=== PATIENT | female | born 1965 | race Caucasian/White ===

== ENCOUNTER 2019-04-08 13:39 | Outpatient (CLI) | payer OTHER ==
--- NOTE | 2019-04-08 15:41 | MRI ---
MRI RIGHT SHOULDER 04/08/19 PROVIDED CLINICAL HISTORY: Right shoulder pain. FINDINGS: There is full thickness, full width, retracted tearing of the supraspinatus tendon with retraction to about the level of the glenohumeral joint. There is full thickness, essentially full width tearing o f the infraspinatus tendon with retraction to about the level of the acromioclavicular joint. The sub scapularis and teres minor tendons appear intact. Intact fibers of the long head biceps tendon are no t identified. There is a large glenohumeral joint effusion that freely communicates with the subacromial subdeltoid bursa. Abnormal signal in the region of the superior labrum compatible with tear. No focal articular cartilage defect is apparent. Generalized articular cartilage thinning involving the inferior aspect s of the humeral head. Acromioclavicular joint osteoarthrosis is demonstrated. There is mild fatty infiltration of both supr aspinatus and infraspinatus muscles without significant muscle volume loss. IMPRESSION: 1. Massive rotator cuff tear. 2. Intact fibers of the long head biceps tendon are not identified, compatible with disruption. 3. Large glenohumeral joint effusion. 4. Humeral articular chondrosis. 5. Acromioclavicular joint osteoarthrosis. POS: [facility]
== END 2019-04-08 13:40 | disposition home or self-care (01) ==
LOC: BICMRI 13:39
PROVIDERS: ATTEND Family Medicine
DX: M25.511 Pain in right shoulder (principal); M75.101 Unspecified rotator cuff tear or rupture of right shoulder, not specified as traumatic; M25.411 Effusion, right shoulder; M19.011 Primary osteoarthritis, right shoulder; M24.111 Other articular cartilage disorders, right shoulder

== ENCOUNTER 2019-10-12 12:38 | Outpatient (CLI) | payer OTHER ==
[2019-10-12 17:21] LABS: Hemoglobin 14.8 g/dL (12.0-16.0); Mean Corpuscular HGB CONC 34.6 g/dL (32.0-36.0); Mean Corpuscular Hemoglobin 32.7 pg (27.0-31.0); Mean Corpuscular Volume 94.5 fL (78.0-98.0); Mean Platelet Volume 7.8 fL (7.4-10.4); Platelet Count 312 thou/uL (130-400); RBC Distribution Width 12.1 % (11.5-14.5); Red Blood Cell (RBC) Count 4.52 mill/uL (4.20-5.40); White Blood Cell (WBC) Count 8.2 thou/uL (4.8-10.8)
[2019-10-12 17:45] LABS: Anion Gap 13 mmol/L (10-20); BUN (Urea Nitrogen) 11 mg/dL (9.8-20.1); Calc. Creatinine Clearance 0 mL/min (70-130); Carbon Dioxide 24 mmol/L (22-29); Chloride 104 mmol/L (98-107); Estimated GFR-MDRD 88; Glucose 85 mg/dL (70-105); Sodium 137 mmol/L (136-145)
--- NOTE | 2019-10-13 15:03 | EKG ---
Test Reason : Blood Pressure : / mmHG Vent. Rate : 068 BPM Atrial Rate : 068 BPM P-R Int : 164 ms QRS Dur : 090 ms QT Int : 396 ms P-R-T Axes : 049 089 023 degrees QTc Int : 421 ms Normal sinus rhythm Cannot rule out Anterior infarct , age undetermined Abnormal ECG Confirmed by UZMA FONTANEZ ([id number]) on 10/13/2019 3:02:53 PM Referred By: JANETH Confirmed By:UZMA FONTANEZ
== END 2019-10-12 12:39 | disposition home or self-care (01) ==
LOC: LABBT 12:38
PROVIDERS: ATTEND Orthopaedic Surgery
DX: Z01.818 Encounter for other preprocedural examination (principal); M75.101 Unspecified rotator cuff tear or rupture of right shoulder, not specified as traumatic; M19.011 Primary osteoarthritis, right shoulder
CPT/HCPCS: 80048; 85027; 93005; 93010

== ENCOUNTER 2019-10-15 10:48 | Day surgery (SDC) | payer OTHER ==
[2019-10-12 15:35] VITALS: BMI 35.2
[~2019-10-15 10:48] MED LIST: Glycopyrrolate 0.2 MG/ML 5 ML SYRINGE ONE; Ketorolac Tromethamine 30 MG/ML VIAL ONE; Lidocaine 1% PF 5 ML VIAL ONE; Ondansetron PF 4 MG/2 ML Vial ONE; PROPOFOL 200 MG/20 ML VIAL ONE; Rocuronium Bromide 10 MG/ML (10ML VIAL) ONE; Ropivacaine 0.2% HCl/PF (40 MG/20 ML VIAL) ONE; Ropivacaine 0.5% HCl/PF (150 MG/30 ML VIAL) ONE
[2019-10-15] MEDS ORDERED: Midazolam HCl 2 mg/2 ml Vial ONE (12:09)
[2019-10-15] MEDS ORDERED: Fentanyl 100 MCG/2 ML VIAL ONE ×5 (12:09→15:50)
[2019-10-15] MEDS ORDERED: Lidocaine 1% w/Epinephrine 1:100K 20 ML VIAL ONE (12:24)
[2019-10-15] MEDS ORDERED: Bupivacaine 0.25% HCL 30 ML VIAL ONE (12:24)
[2019-10-15] MEDS ORDERED: HYDROcodone/Acetaminophen 10/325 mg Tablet PO PRN ×2 (12:25)
[2019-10-15] MEDS ORDERED: Ondansetron PF 4 MG/2 ML Vial IVP PRN (12:25)
[2019-10-15] MEDS ORDERED: Promethazine HCl 25 MG/ML VIAL IM PRN (12:25)
[2019-10-15] MEDS ORDERED: Zolpidem Tartrate 5 MG TAB PO PRN (12:25)
[2019-10-15] MEDS ORDERED: Ropivacaine 0.2% 550 ML 550 ML NERVE BLCK SCH (12:25)
[2019-10-15] MEDS ORDERED: Acetaminophen 325 MG TAB PO PRN (12:25)
[2019-10-15] MEDS ORDERED: traMADol HCl 50 MG TAB PO PRN ×2 (12:25)
[2019-10-15] MEDS ORDERED: Fentanyl 100 MCG/2 ML VIAL IV PRN (12:26)
[2019-10-15] MEDS ORDERED: Promethazine HCl 25 MG/ML VIAL ONE (16:01)
[2019-10-15] MEDS ORDERED: Meperidine HCl/PF 25 MG/ML VIAL ONE (16:15)
[2019-10-15] MEDS ORDERED: Ondansetron ODT 4 MG TAB ONE (18:27)
[2019-10-15] MEDS ORDERED: KETOROLAC EYE TOP SCH ×2 (19:15→23:59)
--- NOTE | 2019-10-16 10:30 | OP ---
DATE OF PROCEDURE: PREOPERATIVE DIAGNOSIS: Massive rotator cuff tear of the right shoulder with acromioclavicular arthritis. POSTOPERATIVE DIAGNOSIS: Massive rotator cuff tear of the right shoulder with acromioclavicular arthritis. PROCEDURE PERFORMED: 1. Arthroscopy of the right shoulder with excision of distal clavicle. 2. Subacromial decompression. 3. Open rotator cuff repair using Dermagraft patch. ANESTHESIA: General. DESCRIPTION OF PROCEDURE: The patient had a supraclavicular block prior to surgery. She was given preoperative IV antibiotics. She was taken to the operating room and placed in supine position. Satisfactory general anesthesia was performed. The patient was then placed in the left lateral decubitus position. All bony prominences were well padded. The patient was placed in 15 pounds of traction and the right shoulder and right arm were sterilely prepped and draped in the usual fashion. The shoulder was scoped through the posterior portal, through an anterior portal and a lateral portal. The patient had some arthritic changes in the shoulder joint. The biceps tendon had already torn and was out of the shoulder joint. The superior aspect of the humeral head was completely uncovered. There was no rotator cuff present there. She had a very large rotator cuff tear, which had retracted medial to the glenoid and it was not mobile. A longitudinal incision was made in the lateral aspect of the shoulder, approximately 2 inches in length. The superior fibers of the deltoid were bluntly dissected, made sure that a good subacromial decompression was performed. The subacromial bursa was removed. The top of the humeral head was visualized. The anterior and posterior portion of the rotator cuff was found, again the part directly over the humeral head had retracted far medial to the glenoid and it was not mobile, and therefore a #2 FiberWire was passed through the anterior and anterior posterior portion of the rotator cuff, also the posterior and posterior medial aspect of the rotator cuff and then sutures were also passed through the superior aspect of the labrum. The thick Dermagraft from [employer] was then sutured initially in the most medial aspect to the labrum and then around anteriorly and medially to the rest of the rotator cuff. The lateral portion of the Dermagraft was then repaired down to the area at the greater tuberosity using 2 medial row and 2 lateral row PushLock anchors, anchor is 4.75 width anchors. This provided excellent fixation to the lateral aspect of the humeral head and greater tuberosity. This provided full coverage over the humeral head. The wound was irrigated and then 0 Vicryl was used for the fascia of the deltoid muscle, 2-0 Vicryl for the fat and subcutaneous tissue, and skin incisions were closed with 3-0 Rapide. The patient was taken out of traction. Sterile dressing was applied. She was awakened, extubated, and transferred to recovery room in stable condition. ESTIMATED BLOOD LOSS: 200 mL. COMPLICATIONS: None. DISCHARGE MEDICATION: Lapaz 10/325 one every 6 hours as needed for pain, #40. The patient is placed in a shoulder immobilizer, which she will need to stay in for a minimum of 1 month. Job ID: [id number]
== END 2019-10-15 19:45 | disposition home or self-care (01) ==
LOC: SDC 10:48
PROVIDERS: ATTEND Orthopaedic Surgery
PROC: 0PB94ZZ Excision of Right Clavicle, Percutaneous Endoscopic Approach (ICD-10-PCS; principal; 2019-10-15)
PROC: 0RNJ4ZZ Release Right Shoulder Joint, Percutaneous Endoscopic Approach (ICD-10-PCS; principal; 2019-10-15)
PROC: 0LQ10ZZ Repair Right Shoulder Tendon, Open Approach (ICD-10-PCS; principal; 2019-10-15)
DX: M75.101 Unspecified rotator cuff tear or rupture of right shoulder, not specified as traumatic (principal); M19.011 Primary osteoarthritis, right shoulder
CPT/HCPCS: A4306; C1713; J0690; J1885; J2001; J2175; J2250; J2405; J2550; J2704; J2795; J3010; Q0162; S0020

== ENCOUNTER 2020-07-08 07:43 | Outpatient (CLI) | payer OTHER ==
--- NOTE | 2020-07-08 09:45 | MRI ---
MRI OF THE RIGHT SHOULDER WITHOUT CONTRAST: INDICATION: History of right shoulder pain and palpable abnormality with loss of range of motion. COMPARISON: Prior MRI of the right shoulder dated 04/08/2019. FINDINGS: There is postsurgical change of a rotator cuff repair, biceps tenodesis, and SLAP repair. There is a lso postsurgical change of a distal clavicle excision acromioplasty. Surface marker was placed along the lateral aspect of the shoulder joint. FINDINGS: There is a recurrent full-thickness tear involving the mid to posterior supraspinatus measuring 2.4 x 1.1 cm. The supraspinatus and infraspinatus tendon are moderately atretic. There is worsening tend inosis, now moderate in severity, involving the subscapularis. There is worsening muscular atrophy o f the supraspinatus and infraspinatus now severe. There is stable moderate atrophy of the teres raul r. There is susceptibility artifact from a suture anchor within the superior glenoid likely related to prior SLAP repair. There is persistent linear high T2 signal involving the superior glenoid labru m suspicious for a recurrent SLAP tear. There is a suspected large paralabral cyst seen along the po sterior superior margin of the glenoid measuring 1.9 x 2.5 cm. Degenerative hypertrophic change jose ins near the AC joint. There is worsening moderate chondrosis of the glenohumeral joint. No enlarge d lymph node is evident. IMPRESSION: 1. Findings most consistent with recurrent mid to posterior supraspinatus full-thickness tear with w orsening severe supraspinatus and infraspinatus muscular atrophy. 2. Recurrent superior labrum anterior to posterior involving the anterior superior, superior, and po sterior superior glenoid labrum with associated paralabral cyst. 3. Worsening moderate glenohumeral chondrosis. 4. Interval biceps tenodesis with mildly atretic biceps tendon partially visualized within the mid t o distal biceps bicipital groove. 5. Worsening moderate tendinosis of the subscapularis without evidence of full-thickness tear. POS: [facility]
== END 2020-07-08 07:44 | disposition home or self-care (01) ==
LOC: BICMRI 07:43
PROVIDERS: ATTEND Orthopaedic Surgery
DX: M25.511 Pain in right shoulder (principal); S43.431A Superior glenoid labrum lesion of right shoulder, initial encounter; M94.211 Chondromalacia, right shoulder; M67.813 Other specified disorders of tendon, right shoulder

== ENCOUNTER 2022-07-11 11:09 | Outpatient (CLI) | payer OTHER | END 2022-07-11 11:10 | disposition home or self-care (01) | LOC: MRI 11:09 | PROVIDERS: ATTEND Orthopaedic Surgery | DX: M25.511 Pain in right shoulder (principal); M75.121 Complete rotator cuff tear or rupture of right shoulder, not specified as traumatic; S43.431A Superior glenoid labrum lesion of right shoulder, initial encounter; Z98.890 Other specified postprocedural states ==

== ENCOUNTER 2023-09-22 12:40 | Emergency (ER) | payer BC, OTHER ==
[2023-09-22] MEDS ORDERED: Ondansetron PF 4 MG/2 ML Vial ONE (13:11)
[2023-09-22] MEDS ORDERED: Morphine 4 MG/ML VIAL ONE (13:11)
[2023-09-22 13:16] LABS: #Basophils 0.2 thou/uL (0.0-0.2); #Eosinphils 0.2 thou/uL (0.0-0.7); #Monocytes 0.6 thou/uL (0.11-0.59); %Basophils 1.4 % (0.0-1.0); %Eosinophils 2.3 % (0.0-10.0); %Lymphocytes 23.3 % (21.0-51.0); %Monocytes 5.4 % (0.0-10.0); %Neutrophils 67.3 % (42.0-75.0); Hemoglobin 14.7 g/dL (12.0-16.0); Mean Corpuscular Hemoglobin 31.8 pg (27.0-31.0); Mean Corpuscular Volume 90.9 fl (78.0-98.0); Mean Platelet Volume 9.5 fL (7.4-10.4); Platelet Count 371 10x3/uL (130-400); RBC Distribution Width 12.8 % (11.5-14.5); Red Blood Cell (RBC) Count 4.62 mill/uL (4.20-5.40); White Blood Cell (WBC) Count 10.4 10x3/uL (4.8-10.8)
[2023-09-22] MEDS ORDERED: Iopamidol-370 76% 500 ML MDV (1 ML CHARGE) ONE (13:23)
[2023-09-22 13:37] LABS: Anion Gap 13 mmol/L (10-20); BUN (Urea Nitrogen) 7 mg/dL (9.8-20.1); Calc. Creatinine Clearance 0 mL/min (70-130); Carbon Dioxide 23 mmol/L (22-29); Chloride 104 mmol/L (98-107); Potassium 4.3 mmol/L (3.5-5.1); Sodium 136 mmol/L (136-145)
[2023-09-22 13:38] LABS: ALT (SGPT) 16 U/L (8-55); AST (SGOT) 20 U/L (5-34); Albumin 4.2 g/dL (3.5-5.0); Alkaline Phosphatase 79 U/L (40-110); Bilirubin, Total 0.3 mg/dL (0.2-1.2); Calcium 9.1 mg/dL (7.8-10.44); Estimated GFR 99; Globulin 2.7 g/dL (2.4-3.5); Glucose 107 mg/dL (70-105); Protein, Total 6.9 g/dL (6.0-8.3)
== END 2023-09-22 15:38 | disposition home or self-care (01) ==
LOC: ERS 12:40
DX: K43.9 Ventral hernia without obstruction or gangrene (principal); F17.210 Nicotine dependence, cigarettes, uncomplicated
CPT/HCPCS: 36415; 74177; 80053; 85025; 96374; J2270; J2405; Q9967

== ENCOUNTER 2023-10-11 09:12 | Outpatient (CLI) | payer BC ==
[2023-10-11 10:50] LABS: #Basophils 0.1 10x3/uL (0.0-0.2); #Eosinphils 0.2 10x3/uL (0.0-0.5); #Monocytes 0.4 10x3/uL (0.0-1.1); #Neutrophils 5.2 10x3/uL (1.5-8.4); %Basophils 1.8 % (0.0-2.0); %Eosinophils 2.6 % (0.0-6.0); %Lymphocytes 24.6 % (18.0-47.0); %Monocytes 5.4 % (0.0-10.0); %Neutrophils 65.3 % (40.0-75.0); Hematocrit 45.2 % (34.9-44.5); Hemoglobin 15.5 g/dL (12.0-15.5); Mean Corpuscular HGB CONC 34.3 g/dL (32.0-36.0); Mean Corpuscular Hemoglobin 30.8 pg (27.0-33.0); Mean Corpuscular Volume 89.9 fl (81.6-98.3); Mean Platelet Volume 10.3 fl (7.4-10.4); Platelet Count 372 10x3/uL (150-450); RBC Distribution Width 12.6 % (11.5-14.5); Red Blood Cell (RBC) Count 5.03 10x6/uL (3.90-5.03)
[2023-10-11 11:34] LABS: Anion Gap 14 mmol/L (10-20); BUN (Urea Nitrogen) 10 mg/dL (9.8-20.1); Calc. Creatinine Clearance 0 mL/min (70-130); Carbon Dioxide 23 mmol/L (22-29); Chloride 106 mmol/L (98-107); Estimated GFR 99; Glucose 102 mg/dL (70-105); Potassium 4.7 mmol/L (3.5-5.1); Sodium 138 mmol/L (136-145)
== END 2023-10-11 09:13 | disposition home or self-care (01) ==
LOC: LABBT 09:12
PROVIDERS: ATTEND Surgery
DX: Z01.818 Encounter for other preprocedural examination (principal); K43.2 Incisional hernia without obstruction or gangrene
CPT/HCPCS: 80048; 85025; 93005; 93010

== ENCOUNTER 2023-10-18 10:02 | Day surgery (SDC) | payer BC ==
[2023-10-11 09:57] VITALS: BMI 35.2
[2023-10-18] MEDS ORDERED: Ondansetron PF 4 MG/2 ML Vial ONE (12:26)
[2023-10-18] MEDS ORDERED: PROPOFOL 20 ML ONE ×2 (12:26→13:19)
[2023-10-18] MEDS ORDERED: Dexamethasone 20 MG/5 ML VIAL ONE (12:26)
[2023-10-18] MEDS ORDERED: Lidocaine 1% PF 5 ML VIAL ONE (12:26)
[2023-10-18] MEDS ORDERED: fentaNYL PF 100 MCG/2 ML SYRINGE ONE (12:26)
[2023-10-18] MEDS ORDERED: Rocuronium Bromide 10 MG/ML (10ML VIAL) ONE (12:26)
[2023-10-18] MEDS ORDERED: Bupivacaine 0.25% HCL 30 ML VIAL ONE (12:27)
[2023-10-18] MEDS ORDERED: EPINEPHrine 1 MG/ML VIAL ONE (12:27)
[2023-10-18] MEDS ORDERED: Midazolam HCl 2 mg/2 ml Vial ONE (12:32)
[2023-10-18] MEDS ORDERED: Sodium Chloride 0.9% 100 ML ONE (12:37)
[2023-10-18] MEDS ORDERED: CEFAZOLIN 2 GM VIAL ONE (12:37)
[2023-10-18] MEDS ORDERED: Ketamine In 0.9 % NaCl 50 MG/5 ML SYRINGE ONE (12:51)
[2023-10-18] MEDS ORDERED: ePHEDrine Sulfate 50 MG/10 ML VIAL ONE (12:58)
[2023-10-18] MEDS ORDERED: Dexmedetomidine 200 MCG/2 ML VIAL ONE (13:10)
[2023-10-18] MEDS ORDERED: hydrALAZINE 20 MG/ML VIAL ONE (13:53)
[2023-10-18] MEDS ORDERED: SUGAMMADEX SODIUM 200 MG/2 ML VIAL ONE ×2 (13:55→14:01)
[2023-10-18] MEDS ORDERED: Lidocaine 2% PF 5 ML VIAL ONE (14:02)
[2023-10-18] MEDS ORDERED: fentaNYL 50 mcg/mL 1 mL Vial ONE ×2 (14:07→14:59)
[2023-10-18] MEDS ORDERED: HYDROmorphone 2 MG/ML VIAL ONE (14:17)
[2023-10-18] MEDS ORDERED: Promethazine HCl 25 MG/ML VIAL ONE (15:52)
[2023-10-18] MEDS ORDERED: Morphine 2 MG/ML VIAL ONE (15:57)
[2023-10-18] MEDS ORDERED: HYDROcodone/Acetaminophen 5/325 mg Tablet ONE (15:57)
== END 2023-10-18 16:57 | disposition home or self-care (01) ==
LOC: SDC 10:02
PROVIDERS: ATTEND Surgery
PROC: 0WUF4JZ Supplement Abdominal Wall with Synthetic Substitute, Percutaneous Endoscopic Approach (ICD-10-PCS; principal; 2023-10-18)
DX: K43.2 Incisional hernia without obstruction or gangrene (principal); M19.90 Unspecified osteoarthritis, unspecified site; J45.909 Unspecified asthma, uncomplicated; F17.210 Nicotine dependence, cigarettes, uncomplicated; Z79.899 Other long term (current) drug therapy
CPT/HCPCS: A4314; C1781; J0171; J0360; J0665; J1100; J1170; J2001; J2250; J2272; J2405; J2550; J2704; J3010; J3490

== ENCOUNTER 2024-08-24 12:49 | Outpatient (CLI) | payer BC | END 2024-08-24 12:50 | disposition home or self-care (01) | LOC: CT 12:49 | PROVIDERS: ATTEND Internal Medicine | DX: K62.89 Other specified diseases of anus and rectum (principal) | CPT/HCPCS: 74177 ==

== ENCOUNTER 2025-07-08 10:48 | Outpatient (CLI) | payer OTHER ==
[2025-07-08 11:25] LABS: #Basophils 0.07 10x3/uL (0.0-0.2); #Eosinophils 0.45 10x3/uL (0.0-0.7); #Monocytes 0.39 10x3/uL (0.11-0.59); #Neutrophils 4.33 10x3/uL (1.40-6.50); %Basophils 1.2 % (0.0-1.0); %Eosinophils 7.4 % (0.0-10.0); %Lymphocytes 13.7 % (21.0-51.0); %Monocytes 6.4 % (0.0-10.0); %Neutrophils 71.1 % (42.0-75.0); Hematocrit 36.4 % (36.0-47.0); Hemoglobin 12.4 g/dL (12.0-16.0); Mean Corpuscular Hemoglobin 32.3 pg (27.0-31.0); Mean Corpuscular Volume 94.8 fL (78.0-98.0); Platelet Count 227 10x3/uL (130-400); Red Blood Cell (RBC) Count 3.84 mill/uL (4.20-5.40); White Blood Cell (WBC) Count 6.08 10x3/uL (4.8-10.8)
[2025-07-08 11:44] LABS: ALT (SGPT) 24 U/L (Less than 34); AST (SGOT) 30 U/L (11-34); Albumin 3.6 g/dL (3.1-4.5); Alkaline Phosphatase 149 U/L (40-110); Anion Gap 11 mmol/L (10-20); BUN (Urea Nitrogen) 7 mg/dL (9.8-20.1); Bilirubin, Total 0.3 mg/dL (0.3-1.2); Calc. Creatinine Clearance 0 mL/min (70-130); Calcium 9.1 mg/dL (7.8-10.44); Carbon Dioxide 24 mmol/L (22-29); Chloride 107 mmol/L (98-107); Globulin 2.7 g/dL (2.4-3.5); Glucose 94 mg/dL (70-105); Potassium 4.4 mmol/L (3.5-5.1); Sodium 138 mmol/L (136-145)
== END 2025-07-08 10:49 | disposition home or self-care (01) ==
LOC: LABBT 10:48
PROVIDERS: ATTEND Surgery
DX: Z01.812 Encounter for preprocedural laboratory examination (principal); Z93.2 Ileostomy status; Z85.048 Personal history of other malignant neoplasm of rectum, rectosigmoid junction, and anus
CPT/HCPCS: 80053; 82378; 85025

== ENCOUNTER 2025-07-08 12:00 | Inpatient (IN) | payer OTHER ==
[2025-07-12] MEDS ORDERED: metroNIDAZOLE 500 MG (100 mL) BAG ONE (08:06)
[2025-07-12] MEDS ORDERED: Acetaminophen 325 MG TAB ONE (08:06)
[2025-07-12] MEDS ORDERED: CEFAZOLIN 2 GM VIAL ONE (08:06)
[2025-07-12] MEDS ORDERED: Heparin 5,000 UNITS/ML VIAL ONE (08:06)
[2025-07-12] MEDS ORDERED: fentaNYL PF 100 MCG/2 ML SYRINGE ONE ×4 (08:38→11:43)
[2025-07-12] MEDS ORDERED: Rocuronium Bromide 10 MG/ML (10ML VIAL) ONE (08:40)
[2025-07-12] MEDS ORDERED: Lidocaine 1% PF 5 ML VIAL ONE (08:40)
[2025-07-12] MEDS ORDERED: Ketamine In 0.9 % NaCl 50 MG/5 ML SYRINGE ONE (09:44)
[2025-07-12] MEDS ORDERED: PROPOFOL 200 MG/20 ML VIAL ONE (09:53)
[2025-07-12] MEDS ORDERED: Glycopyrrolate 0.2 MG/ML 5 ML SYRINGE ONE (09:53)
[2025-07-12] MEDS ORDERED: Ondansetron PF 4 MG/2 ML Vial ONE ×2 (10:41→11:15)
[2025-07-12] MEDS ORDERED: SUGAMMADEX SODIUM 200 MG/2 ML VIAL ONE (10:44)
[2025-07-12] MEDS ORDERED: hydrALAZINE 20 MG/ML VIAL SLOW IVP PRN (10:52)
[2025-07-12] MEDS ORDERED: Ondansetron PF 4 MG/2 ML Vial IVP PRN (10:52)
[2025-07-12] MEDS ORDERED: HYDROcodone/Acetaminophen 7.5/325 mg Tablet PO PRN (10:53)
[2025-07-12] MEDS ORDERED: Albuterol 200 PUFF INH INH PRN (11:17)
[2025-07-12] MEDS ORDERED: hydrALAZINE 20 MG/ML VIAL ONE (11:30)
[2025-07-12] MEDS ORDERED: HYDROmorphone 0.5 MG/0.5 ML SYRINGE ONE (11:44)
[2025-07-12] MEDS ORDERED: HYDROmorphone 0.5 MG/0.5 ML SYR SLOW IVP PRN (12:15)
[2025-07-12 15:43] VITALS: BMI 27.9
[2025-07-12] MEDS: Ketorolac Tromethamine 30 MG (1 mL) VIAL IVP SCH (16:44)
[2025-07-12] MEDS: HYDROcodone/Acetaminophen 7.5/325 mg Tablet PO PRN (17:11)
[2025-07-13 04:37] VITALS: BP 98/56; TEMP 98.6
[2025-07-13 06:58] LABS: Anion Gap 16 mmol/L (10-20); BUN (Urea Nitrogen) 12 mg/dL (9.8-20.1); Calc. Creatinine Clearance 87 mL/min (70-130); Calcium 8.9 mg/dL (7.8-10.44); Carbon Dioxide 20 mmol/L (22-29); Chloride 102 mmol/L (98-107); Glucose 131 mg/dL (70-105); Potassium 4.0 mmol/L (3.5-5.1); Sodium 134 mmol/L (136-145)
[2025-07-13 07:02] LABS: #Basophils 0.06 10x3/uL (0.0-0.2); #Eosinophils 0.17 10x3/uL (0.0-0.7); #Monocytes 0.73 10x3/uL (0.11-0.59); #Neutrophils 8.69 10x3/uL (1.40-6.50); %Basophils 0.6 % (0.0-1.0); %Eosinophils 1.6 % (0.0-10.0); %Lymphocytes 9.8 % (21.0-51.0); %Monocytes 6.8 % (0.0-10.0); %Neutrophils 80.8 % (42.0-75.0); Hematocrit 31.5 % (36.0-47.0); Hemoglobin 10.7 g/dL (12.0-16.0); Mean Corpuscular Hemoglobin 31.8 pg (27.0-31.0); Mean Corpuscular Volume 93.5 fL (78.0-98.0); Platelet Count 352 10x3/uL (130-400); Red Blood Cell (RBC) Count 3.37 mill/uL (4.20-5.40); White Blood Cell (WBC) Count 10.74 10x3/uL (4.8-10.8)
[2025-07-13] MEDS ORDERED: Enoxaparin 40 MG (0.4 mL) SYRINGE SC SCH (09:00)
== END 2025-07-13 08:38 | disposition home or self-care (01) | DRG 331 ==
LOC: SURG A 07-12 07:44 → SURG B 07-12 13:32
PROVIDERS: ADMIT Surgery; ATTEND Surgery
PROC: 0DQB0ZZ Repair Ileum, Open Approach (ICD-10-PCS; principal; 2025-07-12)
PROC: 3E03329 Introduction of Other Anti-infective into Peripheral Vein, Percutaneous Approach (ICD-10-PCS; 2025-07-12)
DX: C20 Malignant neoplasm of rectum (principal); Z93.2 Ileostomy status; Z79.899 Other long term (current) drug therapy; Z98.890 Other specified postprocedural states
CPT/HCPCS: 36415; 36416; 80048; 85025; J0360; J1100; J1171; J1644; J1885; J2250; J2270; J2405; J2550; J2704; J3490; Q0164